=== PATIENT | male | born 1965 | race African-American/Black ===

== ENCOUNTER 2018-05-10 11:19 | Inpatient (IN) | payer OTHER ==
[2018-05-10 12:50] VITALS: BMI 25.7
--- NOTE | 2018-05-10 15:02 | HP ---
Admission [facility] Chief Complaint: " I need to get it together" cocaine rehab Allergies/Adverse Reactions: Allergies Allergy/AdvReac Type Severity Reaction Status Date / Time Penicillins Allergy Unknown Verified 05/10/18 14:27 History of Present Illness: 52 yo male with hx of nicotine, heroin, and cocaine dependence is here seeking rehabilitation. Last rehab [facility] 2012. Longest [period of sobriety seven years, reports relapsed this past september 2017 after the of his mother and going through a divorce. Patient linked to [facility] at [facility] on methadone maintenance 108 mg qd, last dose today, dose pending verification. PMHX: depression. Denies suicidal / homicidal ideation. Denies any legal troubles at this time. Exam Limitations: No Limitations - Ebola screening Have you traveled outside of the country in the last 21 days: No Have you had contact with anyone from an Ebola affected area: No Have you been sick,other than usual withdrawal symptoms: No - Review of Systems Constitutional: No Symptoms Reported EENT: reports: No Symptoms Reported Respiratory: reports: No Symptoms reported Cardiac: reports: No Symptoms Reported GI: reports: No Symptoms Reported : reports: No Symptoms Reported Musculoskeletal: reports: No Symptoms Reported Integumentary: reports: Dryness Neuro: reports: No Symptoms reported Endocrine: reports: Increased Thirst Hematology: reports: No Symptoms Reported Psychiatric: reports: Orientated x3, Anxious, Depressed Other Systems: Reviewed and Negative Patient History - Patient Medical History Hx Anemia: No Hx Asthma: No Hx Chronic Obstructive Pulmonary Disease (COPD): No Hx Cancer: No Hx Cardiac Disorders: No Hx Hypertension: No Hx Hypercholesterolemia: No Hx Pacemaker: No HX Cerebrovascular Accident: No Hx Seizures: No Hx Dementia: No Hx Diabetes: No Hx Gastrointestinal Disorders: No Hx Liver Disease: No Hx Genitourinary Disorders: No Hx Sexually Transmitted Disorders: Yes (syphilis at age 19) Hx Renal Disease (ESRD): No Hx Thyroid Disease: No Hx Human Immunodeficiency Virus (HIV): No (last tested February 2018 Neg results ) Hx Hepatitis C: No Hx Depression: Yes Hx Suicide Attempt: No Hx Bipolar Disorder: No Hx Schizophrenia: No - Patient Surgical History Past Surgical History: No Hx Neurologic Surgery: No Hx Cataract Extraction: No Hx Cardiac Surgery: No Hx Lung Surgery: No Hx Breast Surgery: No Hx Breast Biopsy: No Hx Abdominal Surgery: No Hx Appendectomy: No Hx Cholecystectomy: No Hx Genitourinary Surgery: No Hx Section: No Hx Orthopedic Surgery: No Anesthesia Reaction: No - PPD History Previous Implant?: Yes Documented Results: Negative w/proof Implanted On Prior [facility] Admission?: Yes Date: 01/14/12 Results: 0 mm PPD to be Administered?: Yes - Smoking Cessation Smoking history: Current every day smoker Have you smoked in the past 12 months: Yes Aproximately how many cigarettes per day: 10 Hx Chewing Tobacco Use: No Initiated information on smoking cessation: Yes 'Breaking Loose' booklet given: 05/10/18 - Substance & Tx. History Hx Alcohol Use: No Hx Substance Use: Yes Substance Use Type: Cocaine Hx Substance Use Treatment: Yes (Last rehab [facility] 2012.) - Substances Abused Crack Route: Smoking Frequency: Daily Amount used: $50-60 Age of first use: 18 Date of Last Use: 05/10/18 Heroin Route: Inhalation Frequency: Daily Amount used: 1 bag Age of first use: 18 Date of Last Use: 05/10/18 Family Disease History - Family Disease History Family History: Denies Admission Physical Exam [facility] - Vital Signs Vital Signs: Vital Signs - 24 hr 05/10/18 12:48 Temperature 97.4 F L Pulse Rate 106 H Respiratory 17 Rate Blood Pressure 112/61 - Physical General Appearance: Yes: Appropriately Dressed, Thin, Sweating, Anxious HEENTM: Yes: EOMI, Hearing grossly Normal, Normal ENT Inspection, Normocephalic , Normal Voice, YARON, Pharynx Normal, Tm's normal Respiratory: Yes: Chest Non-Tender, Lungs Clear, Normal Breath Sounds, No Respiratory Distress, No Accessory Muscle Use Neck: Yes: Within Normal Limits Breast: Yes: Breast Exam Deferred Cardiology: Yes: Regular Rhythm, Regular Rate Abdominal: Yes: Normal Bowel Sounds, Non Tender, Flat, Soft Genitourinary: Yes: Within Normal Limits Back: Yes: Normal Inspection Musculoskeletal: Yes: full range of Motion, Gait Steady, Pelvis Stable Extremities: Yes: Normal Capillary Refill, Normal Inspection, Normal Range of Motion, Non-Tender 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 (3) Cocaine dependence Current Visit: Yes Status: Active [facility] Breath Alcohol Content Breath Alcohol Content: 0 Urine Drug Screen - Results Drug Screen Negative: No Urine Drug Screen Results: RO-Cocaine, MTD-Methadone
[2018-05-10] MEDS ORDERED: guaiFENesin/D-METHORPHAN HB 10 ML UNIT-DOSE CUPS PO PRN (15:13)
[2018-05-10] MEDS ORDERED: MAG HYDROX/AL HYDROX/SIMETH 30 ML UNIT-DOSE CUP PO PRN (15:13)
[2018-05-10] MEDS ORDERED: NICOTINE POLACRILEX 2 MG GUM BC PRN (15:13)
[2018-05-10] MEDS ORDERED: MAGNESIUM HYDROX 2400MG/30ML ORAL SUSPENSION 30 ML CUP PO PRN (15:13)
[2018-05-10] MEDS ORDERED: IBUPROFEN 400 MG TABLET (FP) PO PRN (15:13)
[2018-05-10] MEDS ORDERED: LOPERAMIDE HCL 2 MG CAPSULE PO PRN (15:13)
[2018-05-10] MEDS ORDERED: ACETAMINOPHEN 325 MG TABLET (FP) PO PRN (15:13)
[2018-05-10] MEDS ORDERED: MAGNESIUM CITRATE 300 ML BOTTLE PO PRN (15:13)
[2018-05-10] MEDS ORDERED: hydrOXYzine PAMOATE 50 MG CAPSULE (FP) PO PRN (15:13)
[2018-05-10] MEDS ORDERED: MENTHOL/PHENOL 1 EACH UD MM PRN (15:13)
[2018-05-10] MEDS ORDERED: P-EPHED 60MG/TRIPROLIDI 2.5MG TABLET PO PRN (15:13)
[2018-05-10] MEDS ORDERED: TUBERCULIN PPD 5 TU/0.1ML VIAL ID ONE (17:53)
[2018-05-10] MEDS: THIAMINE HCL 100 MG TABLET (FP) PO SCH (21:46)
[2018-05-10] MEDS: MELATONIN 5 MG TABLETS PO PRN (21:46)
[2018-05-11 01:38] LABS: URINE APPEARANCE CLEAR; URINE BILIRUBIN NEGATIVE (<2.0 mg/dL); URINE COLOR YELLOW; URINE GLUCOSE (UA) NEGATIVE (NEGATIVE); URINE KETONE NEGATIVE (NEGATIVE); URINE LEUK ESTERASE TRACE (NEGATIVE); URINE NITRITE NEGATIVE (NEGATIVE); URINE PROTEIN NEGATIVE (NEGATIVE); URINE UROBILINOGEN NEGATIVE mg/dL (0.2-1.0)
[2018-05-11 02:04] LABS: EPI CELLS RARE /HPF (FEW); URINE MUCUS RARE
[2018-05-11] MEDS ORDERED: METHADONE HCL 10 MG TABLET PO SCH (07:15)
--- NOTE | 2018-05-11 07:47 | HP ---
Psychiatrist Admission - Data Date of interview: 05/11/18 Admission source: [facility] Identifying data: This is the first [facility] admission for this 52 years old Black male, father of an 11 years old son, unemployed with no source of income, homeless Medical History: Unremarkable except for history of treatment for syphilis at age 19. Patient is on methadone 108 mg/day. Smokes 10 cigarettes daily Psychiatric History: Denies history of previous psychiatric treatment Physical/Sexual Abuse/Trauma History: Denies history of emotional, physical or sexual abuse aswell as DV relationship. No service Additional Comment: Reports history of 4-5 previous arrests including one felony conviction. Denies being on parole/probation Vital Signs: Vital Signs - 24 hr 05/10/18 05/10/18 05/11/18 12:48 17:23 00:30 Temperature 97.4 F L 967.8 F H Pulse Rate 106 H 66 Respiratory 17 18 18 Rate Blood Pressure 112/61 108/70 05/11/18 05/11/18 03:30 06:47 Temperature 97.6 F Pulse Rate 70 Respiratory 18 18 Rate Blood Pressure 117/72 Allergies/Adverse Reactions: Allergies Allergy/AdvReac Type Severity Reaction Status Date / Time Penicillins Allergy Unknown Verified 05/10/18 14:27 Date of last physical exam: 05/10/18 Concur with the findings of this exam: Yes - Substance Abuse/Tx History Hx Alcohol Use: No Hx Substance Use: Yes Substance Use Type: Cocaine (Started smoking crack cocaine at age 18, consumes $ 50-60 worth daily. Last smoked on 05/10/18), Heroin (Started using heroin at age 18, consumes one bag daily. Last used on 05/10/18) Hx Substance Use Treatment: Yes (Currently attends [facility]. Previous detox @ [facility] & rehab @ [facility]) Mental Status Exam - Mental Status Exam Alert and Oriented to: Time, Place, Person Cognitive Function: Fair Patient Appearance: Well Groomed Mood: Irritable (since he has not gotten his methadone) Affect: Appropriate Patient Behavior: Cooperative Speech Pattern: Clear Voice Loudness: Normal Thought Process: Intact Thought Disorder: Not Present Hallucinations: Denies Suicidal Ideation: Denies Homicidal Ideation: Denies Insight/Judgement: Fair Sleep: Well Appetite: Good Muscle strength/Tone: Normal Gait/Station: Normal Psychiatric Findings - Problem List ([place] 1, 2,3) (1) Cocaine dependence Current Visit: Yes Status: Active (2) Opioid dependence on agonist therapy Current Visit: Yes Status: Chronic Comment: on MMTP on 108 mg qd, dose pending verification. (3) Nicotine dependence Current Visit: Yes Status: Chronic Qualifiers: Nicotine product type: cigarettes (4) Substance induced mood disorder Current Visit: Yes Status: Acute - Initial Treatment Plan Initial Treatment Plan: Monitor progress
[2018-05-11] MEDS: NICOTINE 14 MG/24 HOURS TOPICAL PATCH TD SCH (09:51)
[2018-05-11] MEDS: PRENATAL VITAMINS W/ FOLIC ACID TABLET (FP) PO SCH (09:51)
[2018-05-11] MEDS ORDERED: METHADONE HCL 10 MG TABLET PO ONE (10:09)
[2018-05-11] MEDS ORDERED: METHADONE 80 MG, METHADONE 20 MG, METHADONE 5 MG PO ONE (10:30)
[2018-05-11] MEDS ORDERED: METHADONE HCL 40 MG DISPERSABLE TABLET ONE (10:34)
[2018-05-11] MEDS ORDERED: METHADONE HCL 10 MG TABLET ONE (10:34)
[2018-05-11] MEDS ORDERED: METHADONE HCL 5 MG TABLET ONE (10:34)
[2018-05-11 11:44] LABS: ALBUMIN 3.2 g/dl (3.4-5.0); ALK PHOS 97 U/L (45-117); ANION GAP 6 MMOL/L (8-16); BILIRUBIN,TOTAL 0.2 mg/dL (0.2-1); BLOOD UREA NITROGEN 14 mg/dL (7-18); CALCIUM 8.5 mg/dL (8.5-10.1); CHLORIDE 106 mmol/L (98-107); CO2 29 mmol/L (21-32); CREATININE 0.9 mg/dL (0.55-1.3); GLUCOSE,RANDOM 104 mg/dL (74-106); POTASSIUM 4.7 mmol/L (3.5-5.1); SGOT/AST 19 U/L (15-37); SGPT/ALT 24 U/L (13-61); SODIUM 142 mmol/L (136-145); TOT PROT 6.2 g/dl (6.4-8.2)
[2018-05-11 11:45] LABS: HEMATOCRIT 36.9 % (35.4-49); HEMOGLOBIN 11.7 GM/dL (11.7-16.9); MCH 27.4 pg (25.7-33.7); MCHC 31.8 g/dl (32.0-35.9); MEAN CELL VOLUME 86.3 fl (80-96); MEAN PLT VOLUME 8.7 fl (7.5-11.1); PLATELET COUNT 254 K/MM3 (134-434); RBC 4.28 M/mm3 (4.00-5.60); WHITE BLOOD COUNT 4.6 K/mm3 (4.0-10.0)
--- NOTE | 2018-05-11 12:11 | EKG ---
Test Reason : Blood Pressure : / mmHG Vent. Rate : 071 BPM Atrial Rate : 071 BPM P-R Int : 154 ms QRS Dur : 088 ms QT Int : 400 ms P-R-T Axes : 065 075 009 degrees QTc Int : 434 ms NORMAL SINUS RHYTHM NORMAL ECG NO PREVIOUS ECGS AVAILABLE Confirmed by MD TIMOTEO, SHALINI (2012) on 05/11/2018 12:10:50 PM Referred By: Confirmed By:SHALINI MAHMOOD MD
[2018-05-11 15:25] LABS: RPR REACTIVE 1:1 (NONREACTIVE)
[2018-05-11 15:27] LABS: TREPONEMA ANTIBODY PREVIOUSLY REACTIVE (NONREACTIVE)
[2018-05-11] MEDS: THIAMINE HCL 100 MG TABLET (FP) PO SCH (21:51)
[2018-05-11] MEDS: MELATONIN 5 MG TABLETS PO PRN (21:52)
[2018-05-12] MEDS ORDERED: METHADONE HCL 10 MG TABLET ONE (04:06)
[2018-05-12] MEDS ORDERED: METHADONE HCL 5 MG TABLET ONE (04:06)
[2018-05-12] MEDS ORDERED: METHADONE HCL 40 MG DISPERSABLE TABLET ONE (04:06)
[2018-05-12] MEDS ORDERED: METHADONE HCL 10 MG TABLET PO SCH (06:00)
[2018-05-12] MEDS: METHADONE 80 MG, METHADONE 20 MG, METHADONE 5 MG PO SCH (06:43)
[2018-05-12] MEDS: PRENATAL VITAMINS W/ FOLIC ACID TABLET (FP) PO SCH (10:25)
[2018-05-12] MEDS: NICOTINE 14 MG/24 HOURS TOPICAL PATCH TD SCH (10:25)
[2018-05-12] MEDS: THIAMINE HCL 100 MG TABLET (FP) PO SCH (21:41)
[2018-05-12] MEDS: MELATONIN 5 MG TABLETS PO PRN (21:41)
[2018-05-13] MEDS ORDERED: METHADONE HCL 5 MG TABLET ONE (04:45)
[2018-05-13] MEDS ORDERED: METHADONE HCL 10 MG TABLET ONE (04:46)
[2018-05-13] MEDS ORDERED: METHADONE HCL 40 MG DISPERSABLE TABLET ONE (04:47)
[2018-05-13] MEDS: METHADONE 80 MG, METHADONE 20 MG, METHADONE 5 MG PO SCH (06:10)
[2018-05-13] MEDS: NICOTINE 14 MG/24 HOURS TOPICAL PATCH TD SCH (10:31)
[2018-05-13] MEDS: PRENATAL VITAMINS W/ FOLIC ACID TABLET (FP) PO SCH (10:31)
[2018-05-13] MEDS: THIAMINE HCL 100 MG TABLET (FP) PO SCH (21:50)
[2018-05-13] MEDS: MELATONIN 5 MG TABLETS PO PRN (21:50)
[2018-05-14] MEDS ORDERED: METHADONE HCL 5 MG TABLET ONE (05:28)
[2018-05-14] MEDS ORDERED: METHADONE HCL 10 MG TABLET ONE (05:28)
[2018-05-14] MEDS ORDERED: METHADONE HCL 40 MG DISPERSABLE TABLET ONE (05:28)
[2018-05-14] MEDS: METHADONE 80 MG, METHADONE 20 MG, METHADONE 5 MG PO SCH (06:35)
[2018-05-14] MEDS: NICOTINE 14 MG/24 HOURS TOPICAL PATCH TD SCH (10:38)
[2018-05-14] MEDS: PRENATAL VITAMINS W/ FOLIC ACID TABLET (FP) PO SCH (10:38)
--- NOTE | 2018-05-14 13:47 | PN ---
S Progress Note Note: Pt requesting patch for back pain- pt on methadone and has prn meds for pain Vital Signs - 24 hr 05/14/18 05/14/18 03:30 07:04 Temperature 98.0 F Pulse Rate 89 Respiratory 18 18 Rate Blood Pressure 126/70 a/p back pain. d/w pt exercises for back pain and using warm and cold compresses as needed- pt agreed with this plan
[2018-05-14] MEDS: MELATONIN 5 MG TABLETS PO PRN (21:39)
[2018-05-14] MEDS: THIAMINE HCL 100 MG TABLET (FP) PO SCH (21:39)
[2018-05-15] MEDS ORDERED: METHADONE HCL 5 MG TABLET ONE (05:08)
[2018-05-15] MEDS ORDERED: METHADONE HCL 10 MG TABLET ONE (05:09)
[2018-05-15] MEDS ORDERED: METHADONE HCL 40 MG DISPERSABLE TABLET ONE (05:09)
[2018-05-15] MEDS: METHADONE 80 MG, METHADONE 20 MG, METHADONE 5 MG PO SCH (06:26)
[2018-05-15] MEDS: PRENATAL VITAMINS W/ FOLIC ACID TABLET (FP) PO SCH (10:31)
[2018-05-15] MEDS: NICOTINE 14 MG/24 HOURS TOPICAL PATCH TD SCH (10:31)
[2018-05-15] MEDS: MELATONIN 5 MG TABLETS PO PRN (21:42)
[2018-05-15] MEDS: THIAMINE HCL 100 MG TABLET (FP) PO SCH (21:42)
[2018-05-16] MEDS ORDERED: METHADONE HCL 5 MG TABLET ONE (03:21)
[2018-05-16] MEDS ORDERED: METHADONE HCL 10 MG TABLET ONE (03:22)
[2018-05-16] MEDS ORDERED: METHADONE HCL 40 MG DISPERSABLE TABLET ONE (03:22)
[2018-05-16] MEDS: METHADONE 80 MG, METHADONE 20 MG, METHADONE 5 MG PO SCH (06:07)
[2018-05-16] MEDS: PRENATAL VITAMINS W/ FOLIC ACID TABLET (FP) PO SCH (09:58)
[2018-05-16] MEDS: NICOTINE 14 MG/24 HOURS TOPICAL PATCH TD SCH (09:58)
[2018-05-16] MEDS: THIAMINE HCL 100 MG TABLET (FP) PO SCH (21:38)
[2018-05-16] MEDS: MELATONIN 5 MG TABLETS PO PRN (21:39)
[2018-05-17] MEDS ORDERED: METHADONE HCL 5 MG TABLET ONE (02:40)
[2018-05-17] MEDS ORDERED: METHADONE HCL 10 MG TABLET ONE (02:40)
[2018-05-17] MEDS ORDERED: METHADONE HCL 40 MG DISPERSABLE TABLET ONE (02:41)
[2018-05-17] MEDS: METHADONE 80 MG, METHADONE 20 MG, METHADONE 5 MG PO SCH (06:20)
[2018-05-17] MEDS: NICOTINE 14 MG/24 HOURS TOPICAL PATCH TD SCH (10:37)
[2018-05-17] MEDS: PRENATAL VITAMINS W/ FOLIC ACID TABLET (FP) PO SCH (10:37)
--- NOTE | 2018-05-17 14:36 | PN ---
S Progress Note Note: C/O BILATERAL FEET SWELLING . PT REPORTS SWELLING PREVIOUS EPISODES IN THE PAST. ALERT O X 3. NAD. Vital Signs - 24 hr 05/17/18 05/17/18 05/17/18 00:30 03:30 07:17 Temperature 97.7 F Pulse Rate 69 Respiratory 18 18 18 Rate Blood Pressure 117/71 Laboratory Tests 05/11/18 05/11/18 05/11/18 00:01 06:00 06:00 WBC 4.6 RBC 4.28 Hgb 11.7 Hct 36.9 MCV 86.3 MCH 27.4 MCHC 31.8 L RDW 15.0 Plt Count 254 MPV 8.7 Sodium 142 Potassium 4.7 Chloride 106 Carbon Dioxide 29 Anion Gap 6 L BUN 14 Creatinine 0.9 Creat Clearance w eGFR > 60 Random Glucose 104 Calcium 8.5 Total Bilirubin 0.2 AST 19 ALT 24 Alkaline Phosphatase 97 Total Protein 6.2 L Albumin 3.2 L Urine Color Yellow Urine Appearance Clear Urine pH 6.0 Ur Specific [place] 1.021 Urine Protein Negative Urine Glucose (UA) Negative Urine Ketones Negative Urine Blood Negative Urine Nitrite Negative Urine Bilirubin Negative Urine Urobilinogen Negative Ur Leukocyte Esterase Trace Urine WBC (Auto) 11 Urine RBC (Auto) 1 Ur Epithelial Cells Rare Urine Mucus Rare RPR Titer T.pallidum Ab (MHA) 05/11/18 06:00 WBC RBC Hgb Hct MCV MCH MCHC RDW Plt Count MPV Sodium Potassium Chloride Carbon Dioxide Anion Gap BUN Creatinine Creat Clearance w eGFR Random Glucose Calcium Total Bilirubin AST ALT Alkaline Phosphatase Total Protein Albumin Urine Color Urine Appearance Urine pH Ur Specific [place] Urine Protein Urine Glucose (UA) Urine Ketones Urine Blood Urine Nitrite Urine Bilirubin Urine Urobilinogen Ur Leukocyte Esterase Urine WBC (Auto) Urine RBC (Auto) Ur Epithelial Cells Urine Mucus RPR Titer Reactive 1:1 H T.pallidum Ab (MHA) Previously reactive FEET:NON PITTING EDEMA ON FEET. NO SWELLING ON ANKLES OR UPPER EXTREMITIES. NO SKIN BREAK NOTED. PLAN:ELEVATE BOTH LEGS WHILE IN BED.
[2018-05-17] MEDS: THIAMINE HCL 100 MG TABLET (FP) PO SCH (21:52)
[2018-05-17] MEDS: MELATONIN 5 MG TABLETS PO PRN (21:52)
[2018-05-18] MEDS ORDERED: METHADONE HCL 5 MG TABLET ONE (04:14)
[2018-05-18] MEDS ORDERED: METHADONE HCL 10 MG TABLET ONE (04:14)
[2018-05-18] MEDS ORDERED: METHADONE HCL 40 MG DISPERSABLE TABLET ONE (04:15)
[2018-05-18] MEDS ORDERED: METHADONE 80 MG, METHADONE 20 MG, METHADONE 5 MG PO SCH (06:00)
[2018-05-18] MEDS: NICOTINE 14 MG/24 HOURS TOPICAL PATCH TD SCH (10:36)
[2018-05-18] MEDS: PRENATAL VITAMINS W/ FOLIC ACID TABLET (FP) PO SCH (10:36)
--- NOTE | 2018-05-18 14:06 | PN ---
[facility] Progress Note Note: METHADONE 105 MG PO DAILY RENEWED X 7 DAYS.
[2018-05-18] MEDS: THIAMINE HCL 100 MG TABLET (FP) PO SCH (21:30)
[2018-05-18] MEDS: MELATONIN 5 MG TABLETS PO PRN (21:30)
[2018-05-19] MEDS ORDERED: METHADONE HCL 10 MG TABLET PO SCH (06:00)
[2018-05-19] MEDS ORDERED: METHADONE HCL 40 MG DISPERSABLE TABLET ONE (06:03)
[2018-05-19] MEDS ORDERED: METHADONE HCL 10 MG TABLET ONE (06:03)
[2018-05-19] MEDS ORDERED: METHADONE HCL 5 MG TABLET ONE (06:03)
[2018-05-19] MEDS: METHADONE 80 MG, METHADONE 20 MG, METHADONE 5 MG PO SCH (06:04)
[2018-05-19] MEDS: PRENATAL VITAMINS W/ FOLIC ACID TABLET (FP) PO SCH (10:17)
[2018-05-19] MEDS: NICOTINE 14 MG/24 HOURS TOPICAL PATCH TD SCH (10:17)
[2018-05-19] MEDS: THIAMINE HCL 100 MG TABLET (FP) PO SCH (21:41)
[2018-05-19] MEDS: MELATONIN 5 MG TABLETS PO PRN (21:41)
[2018-05-20] MEDS ORDERED: METHADONE HCL 5 MG TABLET ONE (03:30)
[2018-05-20] MEDS ORDERED: METHADONE HCL 10 MG TABLET ONE (03:30)
[2018-05-20] MEDS ORDERED: METHADONE HCL 40 MG DISPERSABLE TABLET ONE (03:31)
[2018-05-20] MEDS: METHADONE 80 MG, METHADONE 20 MG, METHADONE 5 MG PO SCH (06:02)
[2018-05-20] MEDS: PRENATAL VITAMINS W/ FOLIC ACID TABLET (FP) PO SCH (10:51)
[2018-05-20] MEDS: NICOTINE 14 MG/24 HOURS TOPICAL PATCH TD SCH (10:51)
[2018-05-20] MEDS: MELATONIN 5 MG TABLETS PO PRN (21:42)
[2018-05-20] MEDS: THIAMINE HCL 100 MG TABLET (FP) PO SCH (21:42)
[2018-05-21] MEDS ORDERED: METHADONE HCL 5 MG TABLET ONE (04:44)
[2018-05-21] MEDS ORDERED: METHADONE HCL 10 MG TABLET ONE (04:45)
[2018-05-21] MEDS ORDERED: METHADONE HCL 40 MG DISPERSABLE TABLET ONE (04:45)
[2018-05-21] MEDS: METHADONE 80 MG, METHADONE 20 MG, METHADONE 5 MG PO SCH (06:08)
[2018-05-21] MEDS: NICOTINE 14 MG/24 HOURS TOPICAL PATCH TD SCH (10:31)
[2018-05-21] MEDS: PRENATAL VITAMINS W/ FOLIC ACID TABLET (FP) PO SCH (10:31)
[2018-05-21] MEDS: MELATONIN 5 MG TABLETS PO PRN (21:45)
[2018-05-21] MEDS: THIAMINE HCL 100 MG TABLET (FP) PO SCH (21:45)
[2018-05-22] MEDS ORDERED: METHADONE HCL 5 MG TABLET ONE (04:25)
[2018-05-22] MEDS ORDERED: METHADONE HCL 10 MG TABLET ONE (04:25)
[2018-05-22] MEDS ORDERED: METHADONE HCL 40 MG DISPERSABLE TABLET ONE (04:25)
[2018-05-22] MEDS: METHADONE 80 MG, METHADONE 20 MG, METHADONE 5 MG PO SCH (06:08)
[2018-05-22] MEDS: PRENATAL VITAMINS W/ FOLIC ACID TABLET (FP) PO SCH (10:01)
[2018-05-22] MEDS: NICOTINE 14 MG/24 HOURS TOPICAL PATCH TD SCH (10:01)
[2018-05-22] MEDS: MELATONIN 5 MG TABLETS PO PRN (21:42)
[2018-05-22] MEDS: THIAMINE HCL 100 MG TABLET (FP) PO SCH (21:42)
[2018-05-22] MEDS: HYDROCORTISONE 1% TOPICAL CREAM 30 GM TUBE TP PRN (22:12)
[2018-05-23] MEDS ORDERED: METHADONE HCL 5 MG TABLET ONE (06:13)
[2018-05-23] MEDS ORDERED: METHADONE HCL 10 MG TABLET ONE (06:13)
[2018-05-23] MEDS ORDERED: METHADONE HCL 40 MG DISPERSABLE TABLET ONE (06:13)
[2018-05-23] MEDS: METHADONE 80 MG, METHADONE 20 MG, METHADONE 5 MG PO SCH (06:14)
--- NOTE | 2018-05-23 07:11 | PN ---
Psychiatric Progress Note Vital Signs: Vital Signs Period Temp Pulse Resp BP Sys/Heller Pulse Ox Last 24 Hr 97.9 F 74 18-18 108/82 Date of Session: 05/23/18 Chief Complaint:: Discharge Note HPI: Patient addressing Cocaine Dependence comorbid with Opioid Dependence on Agonist Therapy, Nicotine Dependence and Substance-Induced Mood Disorder Current Medications: Active Medications Generic Name Dose Route Start Last Admin Trade Name Freq PRN Reason Stop Dose Admin Acetaminophen 650 mg 05/10/18 15:13 Tylenol - PO Q4H PRN FEVER Al Hydroxide/Mg Hydroxide 30 ml 05/10/18 15:13 Mylanta Oral Suspension - PO Q6H PRN DYSPEPSIA Eucalyptus/Menthol/Phenol/Sorbitol 1 each 05/10/18 15:13 Cepastat Lozenge - MM Q4H PRN SORE THROAT Guaifenesin 10 ml 05/10/18 15:13 Robitussin Dm - PO Q6H PRN COUGH Hydrocortisone 1 applic 05/22/18 21:58 05/22/18 22:12 Hytone 1% Cream - TP 1 applic QID PRN Administration FOR ITCHING Hydroxyzine Pamoate 50 mg 05/10/18 15:13 Vistaril - PO Q4H PRN AGITATION Ibuprofen 400 mg 05/10/18 15:13 05/12/18 21:43 Motrin - PO 400 mg Q6H PRN Administration Pain level 4-6 Loperamide HCl 4 mg 05/10/18 15:13 Imodium - PO Q6H PRN DIARRHEA Magnesium Citrate 300 ml 05/10/18 15:13 Citroma - PO Q48H PRN CONSTIPATION Magnesium Hydroxide 30 ml 05/10/18 15:13 Milk Of Magnesia - PO DAILY PRN CONSTIPATION Melatonin 5 mg 05/10/18 22:00 05/22/18 21:42 Melatonin PO 5 mg HS PRN Administration INSOMNIA Methadone HCl 80 mg/ Methadone 105 mg 05/19/18 06:00 05/23/18 06:14 HCl 20 mg/ Methadone HCl 5 mg PO 105 mg DAILY@0600 WHIT Administration Nicotine 14 mg 05/11/18 10:00 05/22/18 10:01 Nicoderm Patch - TD Not Given DAILY WHIT Nicotine Polacrilex 2 mg 05/10/18 15:13 Nicorette Gum - BC Q2H PRN NICOTINE REPLACEMENT RX Multivit/Folic Acid/Iron 1 tab 05/11/18 10:00 05/22/18 10:01 Vitamins (Sjr) - PO 1 tab DAILY WHIT Administration Pseudoephedrine/Triprolidine 1 combo 05/10/18 15:13 Actifed - PO TID PRN NASAL CONGESTION Thiamine HCl 100 mg 05/10/18 22:00 05/22/18 21:42 Vitamin B1 - PO 100 mg HS WHIT Administration Current Side Effect: No Lab tests ordered: Yes Lab tests reviewed: Yes Provider note:: Patient will complete this program on 05/24/18. He has met his treatment goals and will continue to address his issues in outpatient treatment at [facility]. 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 He is stable for discharge on 05/24/18 Total face to face time:: 35 Mental Status Exam - Mental Status Exam Alert and Oriented to: Time, Place, Person Cognitive Function: Fair Patient Appearance: Well Groomed Mood: Hopeful, Euthymic Affect: Appropriate Patient Behavior: Cooperative Speech Pattern: Clear Voice Loudness: Normal Thought Process: Intact, Goal Oriented Thought Disorder: Not Present Hallucinations: Denies Suicidal Ideation: Denies Homicidal Ideation: Denies Insight/Judgement: Fair Sleep: Well Appetite: Good Muscle strength/Tone: Normal Gait/Station: Normal Psychiatric Treatment Plan - Problem List (1) Cocaine dependence Current Visit: Yes (2) Opioid dependence on agonist therapy Current Visit: Yes Comment: on MMTP on 108 mg qd, dose pending verification. (3) Nicotine dependence Current Visit: Yes Qualifiers: Nicotine product type: cigarettes (4) Substance induced mood disorder Current Visit: Yes Initial treatment plan: Patient will be discharged tomorrow and referred to [facility] for outpatient treatment
[2018-05-23] MEDS: NICOTINE 14 MG/24 HOURS TOPICAL PATCH TD SCH (10:08)
[2018-05-23] MEDS: PRENATAL VITAMINS W/ FOLIC ACID TABLET (FP) PO SCH (10:08)
[2018-05-23] MEDS: HYDROCORTISONE 1% TOPICAL CREAM 30 GM TUBE TP PRN (10:09)
[2018-05-23] MEDS: MELATONIN 5 MG TABLETS PO PRN (21:44)
[2018-05-23] MEDS: THIAMINE HCL 100 MG TABLET (FP) PO SCH (21:44)
[2018-05-24] MEDS ORDERED: METHADONE HCL 10 MG TABLET ONE (02:46)
[2018-05-24] MEDS ORDERED: METHADONE HCL 5 MG TABLET ONE (02:46)
[2018-05-24] MEDS ORDERED: METHADONE HCL 40 MG DISPERSABLE TABLET ONE (02:46)
[2018-05-24] MEDS: METHADONE 80 MG, METHADONE 20 MG, METHADONE 5 MG PO SCH (06:02)
[2018-05-24 07:00] VITALS: BP 132/68; PULSE 72; TEMP 97.8
[2018-05-24] MEDS: NICOTINE 14 MG/24 HOURS TOPICAL PATCH TD SCH (10:31)
[2018-05-24] MEDS: HYDROCORTISONE 1% TOPICAL CREAM 30 GM TUBE TP PRN (10:32)
[2018-05-24] MEDS: PRENATAL VITAMINS W/ FOLIC ACID TABLET (FP) PO SCH (10:32)
== END 2018-05-24 10:45 | disposition home or self-care (01) | DRG 772 ==
LOC: YASAS 11:19 → Y5N 15:59
PROVIDERS: ADMIT Psychiatry & Neurology Psychiatry; ATTEND Psychiatry & Neurology Psychiatry
PROC: HZ42ZZZ Group Counseling for Substance Abuse Treatment, Cognitive-Behavioral (ICD-10-PCS; principal; 2018-05-10)
DX: F14.20 Cocaine dependence, uncomplicated (principal); F11.20 Opioid dependence, uncomplicated; F17.210 Nicotine dependence, cigarettes, uncomplicated; F19.24 Other psychoactive substance dependence with psychoactive substance-induced mood disorder; R60.0 Localized edema; M79.89 Other specified soft tissue disorders; Z86.19 Personal history of other infectious and parasitic diseases; Z59.0 Homelessness
CPT/HCPCS: 36415; 80053; 81003; 81015; 85027; 86593; 86780; 93005; 93010